=== PATIENT | male | born 1955 | race Caucasian/White ===

== ENCOUNTER 2020-04-29 08:40 | Inpatient (IN) | payer OTHER ==
[2020-04-29 10:05] LABS: Protime INR 0.94
[2020-04-29] MEDS ORDERED: ONDANSETRON 4 MG/2 ML VIAL ONE ×2 (10:11→12:35)
[2020-04-29] MEDS ORDERED: MORPHINE 2 MG/ML SYR ONE ×2 (10:11→12:35)
[2020-04-29 10:18] LABS: Basophils % 0.2 % (0-1.3); Hematocrit 51.2 % (39.6-49.0); Lymphocytes % 12.5 % (15.3-44.8); MPV 7.8 fL (7.6-11.3); RBC Red Blood Cell Count 5.12 M/uL (4.33-5.43)
[2020-04-29 10:21] LABS: ALT/SGPT 24 U/L (12-78); AST/SGOT 23 U/L (15-37); Albumin 3.7 g/dL (3.4-5.0); Alkaline Phosphatase 68 U/L (45-117); BUN Blood Urea Nitrogen 26 mg/dL (7-18); Bicarbonate 25 mmol/L (21-32); Bilirubin Direct 0.2 mg/dL (0-0.2); Bilirubin Total 0.8 mg/dL (0.2-1.0); Glucose Level 109 mg/dL (74-106); Potassium 4.4 mmol/L (3.5-5.1); Protein, Total 7.6 g/dL (6.4-8.2); Troponin (Emerg Dept Use Only) < 0.02 ng/mL (0.0-0.045)
[2020-04-29 10:22] LABS: Lipase 69 U/L (73-393); Magnesium 2.3 mg/dL (1.8-2.4)
[2020-04-29 10:23] LABS: Sodium Level 119 mmol/L (136-145)
--- NOTE | 2020-04-29 10:40 | RAD REPORT ---
EXAM DESCRIPTION: RAD - Chest Single View - 04/29/2020 9:50 am CLINICAL HISTORY: ABDOMINAL DISTENTION Chest pain. COMPARISON: Abdomen Pelvis Wo Contrast dated 04/28/2020 FINDINGS: Portable technique limits examination quality. The lungs are mildly emphysematous but grossly clear. The heart is normal in size. No displaced fract ures. IMPRESSION: No acute intrathoracic process suspected.
--- NOTE | 2020-04-29 11:33 | P.HP ---
Certification for Inpatient Patient admitted to: Inpatient With expected LOS: >2 Midnights Practitioner: I am a practitioner with admitting privileges, knowledge of patient current condition, hospital course, and medical plan of care. Services: Services provided to patient in accordance with Admission requirements found in Title 42 Section 412.3 of the Code of Federal Regulations Patient History Date of Service: 04/29/20 Reason for admission: SBO History of Present Illness: 64yo M, PMH: HIV, HTN presents to ED due to several days of nausea, abdominal distention and pain. He was seen by general surgery in office and had CT abd/pelvis done yesterday which revealed SBO in R abdomen - at site of R inguinal hernia. He was also noted to have L inguinal hernia as well. He reports no PO intake in ~4 days. Last BM was ~3 days ago, passing very little flatus. He had an episode of NBNB emesis last night and this morning. He denies any fevers, chest pain, SOB, swelling. He reports h/o HIV and has been "stable" since 1999, and takes anti-retrovirals - sees ID in [place]. - Past Medical/Surgical History -: HIV -: HTN -: Appendectomy - 1969 - Family History Family History: Reviewed- Non-Contributory - Social History Smoking Status: Current every day smoker (1ppd) Smoking therapy provided: Yes Patient receptive to therapy: Yes Alcohol use: Yes Place of Residence: Home Review of Systems 10-point ROS is otherwise unremarkable Physical Examination - Studies Laboratory Data (last 24 hrs) 04/29/20 09:51: PT 11.1, INR 0.94 04/29/20 09:51: WBC 16.30 H, Hgb 17.7, Hct 51.2 H, Plt Count 339 04/29/20 09:51: Sodium 119 L*, Potassium 4.4, BUN 26 H, Creatinine 0.99, Glucose 109 H, Magnesium 2.3, Total Bilirubin 0.8, AST 23, ALT 24, Alkaline Phosphatase 68, Lipase 69 L Assessment and Plan - Advance Directives Does patient have a Living Will: No Does patient have a Durable POA for Healthcare: No Physician Review Additional Text: Physical Exam: Gen: NAD HEENT: normal conjunctiva, sclera anicteric CV: RRR, no murmur Pulm: CTAB, no wheeze/rales Abd: soft, distended, dimished bowel sounds, mild diffuse tenderness, b/l inguinal hernias, R>L Ext: no rash/lesions, no edema Neuro: str 5/5 bilaterally upper/lower extremities. AAOx3 Problem List SBO b/l inguinal hernias nausea/vomiting, abdominal pain secondary to SBO HIV on antiretroviral therapy HTN -NPO, IVF, prophylactic Zosyn for SBO -leukocytosis likely reactive and partly from dehydration, check procalcitonin -general surgery consulted, pt to go to OR Today -morphine for pain control -low threshold for NGT placement -pt with low-moderate risk of surgery given h/o HIV. No h/o cardiac disease -will obtain home medications for HTN/HIV and restart when taking PO, will consult ID -may need coverage for opportunistic infection perioperatively if will remain NPO for extended time -VTE: SCDs for now Code: full VTE: SCDs Dispo: for OR, anticipate dc home in ~2-3 days Time Spent Managing Pts Care (In Minutes): 60
--- NOTE | 2020-04-29 11:45 | EDPHYS ---
Physician Documentation [facility] Name: Gil Mckeon Age: 64 yrs Sex: Male : 1955 Arrival Date: 04/29/2020 Time: 08:44 Bed 17 Private MD: Crispin Lopez ED Physician Bob Morton HPI: 04/29 09:35 This 64 yrs old Male presents to ER via Ambulatory with complaints of cp Abdominal Problem. 09:35 The patient presents with abdominal pain in the lower abdomen, abdominal distention cp that is diffuse. Onset: The symptoms/episode began/occurred gradually. The symptoms do not radiate. Associated signs and symptoms: Pertinent positives: nausea and vomiting, constipation, Pertinent negatives: diarrhea, fever. Severity of pain: in the emergency department the pain is unchanged despite home interventions. Patient reports having CT of abdomen/pelvis performed yesterday that was ordered by DR Lopez showing small bowel obstruction. Historical: - Allergies: 09:20 Bactrim; aa5 - PMHx: 09:20 Hypertension; AIDS; aa5 - PSHx: 09:20 Appendectomy; aa5 - Immunization history:: Flu vaccine is up to date. - Social history:: Smoking status: Patient reports the use of cigarette tobacco products, smokes one pack cigarettes per day. ROS: 09:40 Constitutional: Positive for poor PO intake, Negative for body aches, chills, fever. cp 09:40 Eyes: Negative for injury, pain, redness, and discharge. cp 09:40 ENT: Negative for ear pain, sore throat, difficulty swallowing, difficulty handling cp secretions. 09:40 Cardiovascular: Negative for chest pain, edema, palpitations. 09:40 Respiratory: Negative for cough, shortness of breath, wheezing. 09:40 Abdomen/GI: Positive for abdominal pain, nausea and vomiting, constipation, abdominal distension, anorexia, Negative for diarrhea, black/tarry stool, rectal bleeding. 09:40 Back: Negative for pain at rest, pain with movement. 09:40 : Negative for urinary symptoms, flank pain, testicular pain 09:40 Skin: Negative for cellulitis, rash. 09:40 Neuro: Negative for altered mental status, dizziness, headache, seizure activity, syncope, weakness. 09:40 All other systems are negative. Exam: 09:45 Constitutional: The patient appears in no acute distress, alert, awake, cp non-diaphoretic, non-toxic, well developed, well nourished, uncomfortable. 09:45 Head/Face: Normocephalic, atraumatic. cp 09:45 Eyes: Periorbital structures: appear normal, Pupils: Extraocular movements: intact throughout, Conjunctiva: normal, no exudate, no injection, Sclera: no appreciated abnormality, Lids and lashes: appear normal, bilaterally. 09:45 ENT: External ear(s): are unremarkable, Nose: is normal, Mouth: Lips: moist, Oral mucosa: pink and intact, moist, Posterior pharynx: Airway: no evidence of obstruction, patent. 09:45 Chest/axilla: Inspection: normal, Palpation: is normal, no crepitus, no tenderness. 09:45 Cardiovascular: Rate: normal, Rhythm: regular, Edema: is not appreciated, JVD: is not appreciated. 09:45 Respiratory: the patient does not display signs of respiratory distress, Respirations: normal, no use of accessory muscles, no retractions, labored breathing, is not present, Breath sounds: are clear throughout, no decreased breath sounds, no stridor, no wheezing. 09:45 Abdomen/GI: Inspection: distension, that is moderate, in the abdomen diffusely, Bowel sounds: active, all quadrants, Palpation: soft, in all quadrants, moderate abdominal tenderness, in all quadrants, rebound tenderness, is not appreciated, voluntary guarding, is not appreciated, Hernia: noted in the right inguinal area and left inguinal area, tenderness, that is moderate, bowel sounds are appreciated on auscultation. 09:45 Back: pain, is absent, ROM is normal. 09:45 Skin: cellulitis, is not appreciated, no rash present. 09:45 Neuro: Orientation: to person, place \\T\\ time. Mentation: is normal, Cerebellar function: is grossly normal, Motor: moves all fours, strength is normal, Sensation: is normal. 10:20 ECG was reviewed by the Attending Physician. cp Vital Signs: 09:18 BP 134 / 80; Pulse 82; Resp 16 S; Temp 98.2(O); Pulse Ox 98% on R/A; Weight 70.31 kg aa5 (R); Height 5 ft. 9 in. (175.26 cm) (R); 12:56 BP 125 / 70; Pulse 66; Resp 16 S; Pulse Ox 96% on R/A; jd3 13:57 BP 113 / 72; Pulse 67; Resp 17 S; Pulse Ox 96% on R/A; jd3 09:18 Body Mass Index 22.89 (70.31 kg, 175.26 cm) aa5 MDM: 09:27 Patient medically screened. cp 10:00 Differential diagnosis: bowel obstruction, non-specific abd pain, sepsis, incarcerated cp hernia, electrolyte abnormality. 11:00 Data reviewed: vital signs, nurses notes, lab test result(s), radiologic studies, CT cp scan, and as a result, I will admit patient. 11:00 Test interpretation: by ED physician or midlevel provider: ECG, plain radiologic cp studies. Counseling: I had a detailed discussion with the patient and/or guardian regarding: the historical points, exam findings, and any diagnostic results supporting the discharge/admit diagnosis, lab results, radiology results, the need for further work-up and treatment in the hospital. Response to treatment: the patient's symptoms have mildly improved after treatment. 11:05 Physician consultation: Darron Zuluaga MD was called at 10:50, was contacted at 11:05, regarding admission, to the telemetry unit. patient's condition, and will see patient in ED. 04/29 09:31 Order name: Basic Metabolic Panel cp 04/29 09:31 Order name: CBC with Diff cp 04/29 09:31 Order name: LFT's cp 04/29 09:31 Order name: Magnesium cp 04/29 09:31 Order name: PT-INR cp 04/29 09:31 Order name: Troponin (emerg Dept Use Only) cp 04/29 09:31 Order name: Lipase cp 04/29 10:10 Order name: COVID-19 : Document "Date of Symptom Onset" if Symptomatic. cp 04/29 10:12 Order name: Protime (+INR); Complete Time: 10:28 EDMS 04/29 10:20 Order name: CBC with Automated Diff; Complete Time: 10:28 EDMS 04/29 10:28 Interpretation: Normal except: WBC 16.30; HCT 51.2; CECIL% 79.2; LYM% 12.5; NEUT A 12.9. cp 04/29 10:24 Order name: Basic Metabolic Panel; Complete Time: 10:28 EDMS 04/29 10:29 Interpretation: Normal except: NA 119; CL 85; GLUC 109; BUN 26; GFR 76. cp 02 10:24 Order name: Liver (Hepatic) Function; Complete Time: 10:28 EDMS 04/29 10:29 Interpretation: Normal except: GLOB 3.9; A/G 0.9. cp 02/ 10:24 Order name: Troponin (Emerg Dept Use Only); Complete Time: 10:28 EDMS 04/29 10:24 Order name: Magnesium; Complete Time: 10:28 EDMS 04/29 09:31 Order name: XRAY Chest (1 view) cp 04/29 09:31 Order name: EKG; Complete Time: 09:32 cp 04/29 09:31 Order name: Cardiac monitoring; Complete Time: 09:36 cp 04/29 09:31 Order name: EKG - Nurse/Tech; Complete Time: 10:20 cp 04/29 09:31 Order name: IV Saline Lock; Complete Time: 10:01 cp 04/29 09:31 Order name: Labs collected and sent; Complete Time: 10:01 cp 04/29 09:31 Order name: O2 Per Protocol; Complete Time: 09:36 cp 04/29 10:24 Order name: Lipase; Complete Time: 10:28 EDMS 04/29 10:41 Order name: RAD; Complete Time: 10:56 EDMS 04/29 12:54 Order name: CORONAVIRUS EDMS 04/29 13:57 Order name: SARS-COV-2 RT PCR EDMS 04/29 09:31 Order name: O2 Sat Monitoring; Complete Time: 09:36 cp EC:20 Rate is 71 beats/min. Rhythm is regular. FL interval is normal. QRS interval is normal. cp QT interval is normal. T waves are Inverted in lead aVR. Interpreted by me. Reviewed by me. Administered Medications: 10:00 Drug: Zofran (Ondansetron) 4 mg Route: IVP; Site: left forearm; jd3 10:01 Drug: morphine 2 mg Route: IVP; Site: left forearm; jd3 12:23 Drug: morphine 2 mg Route: IVP; Site: left forearm; jd3 12:23 Drug: NS 0.9% 500 ml Route: IV; Rate: bolus; Site: left forearm; jd3 12:23 Drug: Zosyn 3.375 grams Route: IVPB; Infused Over: 60 mins; Site: left forearm; jd3 12:23 Drug: Zofran (Ondansetron) 4 mg Route: IVP; Site: left forearm; jd3 Disposition: 15:54 Co-signature as Attending Physician, Bob Morton MD. ma2 Disposition: 04/29/20 11:20 Hospitalization ordered by Darron Zuluaga for Inpatient Admission. Preliminary diagnosis are Bilateral inguinal hernia, with obstruction, without gangrene, Hypo-osmolality and hyponatremia, Nausea and vomiting. - Bed requested for [facility] ER HOLD. - Status is Inpatient Admission. bd - Condition is Stable. - Problem is new. - Symptoms have improved. Signatures: Dispatcher [employer] EDMS Patrica Escobedo Audri, RN RN aa5 Juanjose Herrera PA PA cp Davies, Jonathon, RN RN jd3 Alzahri, Mohammad, MD MD ma2 Corrections: (The following items were deleted from the chart) 12:23 11:20 Hospitalization Ordered by Darron Zuluaga MD for Inpatient Admission. Preliminary bd diagnosis is Bilateral inguinal hernia, with obstruction, without gangrene; Hypo-osmolality and hyponatremia; Nausea and vomiting. Bed requested for Telemetry/MedSurg (Inpatient). Status is Inpatient Admission. Condition is Stable. Problem is new. Symptoms have improved. cp 15:28 12:23 04/29/2020 11:20 Hospitalization Ordered by Darron Zuluaga MD for Inpatient bd Admission. Preliminary diagnosis is Bilateral inguinal hernia, with obstruction, without gangrene; Hypo-osmolality and hyponatremia; Nausea and vomiting. Bed requested for [facility] ER HOLD. Status is Inpatient Admission. Condition is Stable. Problem is new. Symptoms have improved. bd
--- NOTE | 2020-04-29 11:45 | ER ---
Nurse's Notes [facility] Name: Gil Mckeon Age: 64 yrs Sex: Male : 1955 Arrival Date: 04/29/2020 Time: 08:44 Bed 17 Private MD: Crispin Lopez Diagnosis: Bilateral inguinal hernia, with obstruction, without gangrene;Hypo-osmolality and hyponatremia;Nausea and vomiting Presentation: 04/29 09:18 Chief complaint: Patient states: "Dr. Lopez did a CT scan yesterday and I have a aa5 bowel blockage". Pt reports vomiting last night. Pt reports generalized weakness. Coronavirus screen: At this time, the client does not indicate any symptoms associated with coronavirus-19. The client reports previous COVID testing was negative. Date of collection: April 18, 2020. Ebola Screen: Patient negative for fever greater than or equal to 101.5 degrees Fahrenheit, and additional compatible Ebola Virus Disease symptoms. Initial Sepsis Screen: Does the patient meet any 2 criteria? No. Patient's initial sepsis screen is negative. Does the patient have a suspected source of infection? No. Patient's initial sepsis screen is negative. Risk Assessment: Do you want to hurt yourself or someone else? Patient reports no desire to harm self or others. Onset of symptoms was April 29, 2020. 09:18 Method Of Arrival: Ambulatory aa5 09:18 Acuity: AIDEN 3 aa5 Historical: - Allergies: 09:20 Bactrim; aa5 - PMHx: 09:20 Hypertension; AIDS; aa5 - PSHx: 09:20 Appendectomy; aa5 - Immunization history:: Flu vaccine is up to date. - Social history:: Smoking status: Patient reports the use of cigarette tobacco products, smokes one pack cigarettes per day. Screenin:16 Abuse screen: Denies threats or abuse. Nutritional screening: No deficits noted. jd3 Tuberculosis screening: No symptoms or risk factors identified. Fall Risk Ambulatory Aid- None/Bed Rest/Nurse Assist (0 pts). Gait- Normal/Bed Rest/Wheelchair (0 pts) Mental Status- Oriented to own ability (0 pts). Total Benoit Fall Scale indicates No Risk (0-24 pts). Assessment: 09:35 General: Appears in no apparent distress. comfortable, Behavior is calm, cooperative, jd3 appropriate for age. Pain: Complains of pain in abdomen Quality of pain is described as aching. Neuro: Level of Consciousness is awake, alert, obeys commands, Oriented to person, place, time, situation. Cardiovascular: Denies chest pain, Capillary refill < 3 seconds Patient's skin is warm and dry. Respiratory: Airway is patent Respiratory effort is even, unlabored, Respiratory pattern is regular, symmetrical, Denies cough, shortness of breath. GI: Abdomen is round distended, Abd is soft X 4 quads Abdomen is tender to palpation in right lower quadrant and left lower quadrant Reports bloating, nausea. : No signs and/or symptoms were reported regarding the genitourinary system. EENT: No signs and/or symptoms were reported regarding the EENT system. Derm: Skin is intact, Skin is dry, Skin is normal, Skin temperature is warm. Musculoskeletal: Circulation, motion, and sensation intact. Range of motion: intact in all extremities. 10:37 Reassessment: Patient appears in no apparent distress at this time. Patient and/or [facility] family updated on plan of care and expected duration. Pain level reassessed. Patient is alert, oriented x 3, equal unlabored respirations, skin warm/dry/pink. Patient states feeling better. 12:56 Reassessment: Patient appears in no apparent distress at this time. No changes from jd3 previously documented assessment. Patient and/or family updated on plan of care and expected duration. Pain level reassessed. Patient is alert, oriented x 3, equal unlabored respirations, skin warm/dry/pink. 13:56 Reassessment: Patient appears in no apparent distress at this time. Patient and/or jd3 family updated on plan of care and expected duration. Pain level reassessed. Patient is alert, oriented x 3, equal unlabored respirations, skin warm/dry/pink. charting continued in [facility]. Vital Signs: 09:18 BP 134 / 80; Pulse 82; Resp 16 S; Temp 98.2(O); Pulse Ox 98% on R/A; Weight 70.31 kg aa5 (R); Height 5 ft. 9 in. (175.26 cm) (R); 12:56 BP 125 / 70; Pulse 66; Resp 16 S; Pulse Ox 96% on R/A; jd3 13:57 BP 113 / 72; Pulse 67; Resp 17 S; Pulse Ox 96% on R/A; jd3 09:18 Body Mass Index 22.89 (70.31 kg, 175.26 cm) aa5 ED Course: 08:44 Patient arrived in ED. as 08:44 Crispin Lopez MD is Private Physician. as 09:15 Arm band placed on. aa5 09:20 Triage completed. aa5 09:27 Juanjose Herrera PA is PHCP. cp 09:27 Bob Morton MD is Attending Physician. cp 09:35 Davy Freedman, JESUS is Primary Nurse. jd3 10:01 Inserted saline lock: 20 gauge in left forearm, using aseptic technique. Blood jd3 collected. 11:18 Darron Zuluaga MD is Hospitalizing Provider. cp 13:20 Patient has correct armband on for positive identification. Placed in gown. Bed in low jd3 position. Call light in reach. Side rails up X2. monitoring and evaluation advisor on. Pulse ox on. NIBP on. 13:57 No provider procedures requiring assistance completed. Patient admitted, IV remains in jd3 place. Administered Medications: 10:00 Drug: Zofran (Ondansetron) 4 mg Route: IVP; Site: left forearm; jd3 10:01 Drug: morphine 2 mg Route: IVP; Site: left forearm; jd3 12:23 Drug: morphine 2 mg Route: IVP; Site: left forearm; jd3 12:23 Drug: NS 0.9% 500 ml Route: IV; Rate: bolus; Site: left forearm; jd3 12:23 Drug: Zosyn 3.375 grams Route: IVPB; Infused Over: 60 mins; Site: left forearm; jd3 12:23 Drug: Zofran (Ondansetron) 4 mg Route: IVP; Site: left forearm; jd3 Outcome: 11:20 Decision to Hospitalize by Provider. cp 13:57 Admitted to ER Hold. Please see [facility] for further documentation. jd3 13:57 Condition: stable 13:57 Instructed on the need for admit. 15:28 Patient left the ED. bd Signatures: Patrica Escobedo Amelia as Calderon, Audri, RN RN aa5 Juanjose Herrera PA PA cp Davy Freedman RN RN jd3 Corrections: (The following items were deleted from the chart) : 09:18 Coronavirus screen: At this time, the client does not indicate any symptoms aa5 associated with coronavirus-19. aa5 12:33 12:32 NS 0.9% 500 ml IV at bolus in left forearm jd3 jd3
[2020-04-29] MEDS ORDERED: NA CHLORIDE 0.9% 500 ML ONE (11:50)
[2020-04-29] MEDS ORDERED: PIPER/TAZO/NS 3.375gm 3.375 GM/100 ML BAG ONE (11:50)
[2020-04-29] MEDS: NA CHLORIDE 0.9% 1,000 ML IV SCH ×2 (14:11→22:32)
[2020-04-29] MEDS ORDERED: ONDANSETRON 4 MG/2 ML VIAL IV PRN (14:11)
[2020-04-29] MEDS: MORPHINE 2 MG/ML SYR IV PRN (14:23)
[2020-04-29] MEDS ORDERED: NA CHLORIDE 0.9% 1,000 ML ONE (14:52)
[2020-04-29 15:31] VITALS: BMI 22.8
--- NOTE | 2020-04-29 15:51 | CON ---
Date of Consultation: 04/29/2020 Reason For Service: Small bowel obstruction with incarcerated right inguinal hernia. History Of Present Illness: This is a case of a 64-year-old patient with multiple medical history in cluding HIV positive, hypertension, abdominal distention for several days already, yesterday came to the office. I asked for a CAT scan of the abdomen and pelvis due to his current condition and last n ight, found to have a small bowel obstruction with a loop of bowel going into the right inguinal paola on including cecum and ileocecal valve and part of the small bowel creating an obstruction of the sma ll bowel. Patient also has hernia on the left side, but he has not get any problem with no pain and he is more concerned about the right side. He was asked to come to the ER immediately, but he decide d just to come today instead of yesterday. He understood the risks that he took. He shows in ER rig ht now once again with vomiting last night too and he was seen in the ER and started the medical work up, getting ready for emergent surgery. He had a colonoscopy about 2 years ago done by Dr. Hurd, he claimed was negative. They have been trying his belly ache back and forth for the last se veral weeks. Past Medical History: HIV, hypertension. Surgical History: Include appendectomy in the 70s. Family History: Noncontributory. He smoked a pack a day. He does not drink alcohol. Medications: Reviewed. Review of Systems: As above in H and P, nausea, vomiting, abdominal distention, abdominal pain, right inguinal pain. No melena. No dysuria, hematuria, hematochezia. Physical Examination: General: Patient is awake, alert. HEENT: Pupils are anicteric. Neck: Supple. Chest: Clear. Abdomen: Distended. The patient has a right inguinal hernia present. It is tender. The patient al so has left inguinal hernia, reducible. Extremities: Good capillary refill. Rectal deferred. CAT scan was done last night shows multiple f indings. Patient has as per Dr. Brunner a small bowel obstruction, we believe the source of that sma ll bowel obstruction or the point where we believe the obstruction is, on the right inguinal region w here he has cecum and ileocecal bowel part of the distal small bowel in that region causing a kink th at is proximal to that is developing bowel obstruction. The patient also happened to have a left ing uinal hernia for what he contained a loop of sigmoid colon, but that area does not look dilated or in flamed. A small amount of fluid in the peritoneal cavity. Assessment: This is a 64-year-old patient with small bowel obstruction, we believe the point of the small bowel obstruction could be the right inguinal region that is where the patient complained is rodriguez ving a tenderness in that region and the bulging. That happened to be also the point where the CAT s can believe is the reason of his obstruction. We are going to take him urgently to OR to relieve raj t obstruction and fix the hernia and may need bowel resection, may need laparotomy, may need ostomy. Obviously, he has some other issues like stomach pain that he believes is gastritis and that will be addressed, but at this moment, the emergent call for that one obviously. Indications: He is afraid of being a long time under anesthesia so he is not going to allow us to do the right inguinal hernia to emergency, but in the future when he get medically better an d more stable since he feels dehydrated right now in 2 weeks, then eventually we will fix the opposit e hernia. In the meantime he is going to trying to not to do any heavy lifting. He has no pain in t hat region. He is asymptomatic, but he was advised in the way intervention is going to have to be fi xed once this emergency resolved. The benefits, alternatives, and risks of repair of above procedure were fully explained, including, but not limited to infection, bleeding, damage to adjacent structur es, anesthesia complication, abscess, recurrence, PA and even . He also understands this may no t relieve the symptoms. He might need more than one surgical intervention. The medical doctors trying to clear him for emergent surgery in the next few minutes. The OR was called for booking. XAVIER/HAILEY Voice ID: [id number] Report ID: [id number]
[2020-04-29] MEDS ORDERED: propofoL 200 MG/20 ML VIAL IV ONE (15:52)
[2020-04-29] MEDS ORDERED: ROCURONIUM 50 MG/5 ML VIAL IV ONE (15:53)
[2020-04-29] MEDS ORDERED: LIDOCAINE 2% MPF 5 ML VIAL ONE (15:53)
[2020-04-29] MEDS ORDERED: FENTANYL CITR 250 MCG/5 ML ONE (15:53)
--- NOTE | 2020-04-29 16:08 | P.BOP ---
Preoperative diagnosis: acute cholecystitis, symptomatic cholelithiasis, Postoperative diagnosis: same plus umbilical hernia Primary procedure: 1. Laparoscopic cholecystectomy Secondary procedure: 2. open repair umbilical hernia Net Wpf Developer: ARCHANA MCCAIN ([employer]CH[employer]) Estimated blood loss: <20cc Specimen: gb Findings: gallbladder with gangrenous wall changes Anesthesia: General Complications: None Drain(s): TYREL drain Transferred to: Recovery Room Condition: Good
[2020-04-29] MEDS ORDERED: SUCCINYLCHOLINE 20 MG/ML (10 ML) IV ONE (16:26)
--- NOTE | 2020-04-29 16:48 | OP ---
Date of Procedure: 04/29/2020 Surgeon: Crispin Lopez MD Community Health Planning Director: JOSE Martinez. Preoperative Diagnosis: Acute cholecystitis, symptomatic cholelithiasis. Postoperative Diagnosis: Acute cholecystitis, symptomatic cholelithiasis plus umbilical hernia. Procedures: 1.Laparoscopic cholecystectomy. 2.Open repair of umbilical hernia. Estimated Blood Loss: Less than 20 cc. Specimen: Gallbladder. Findings: Gallbladder with gangrenous wall changes. Anesthesia: General plus local. Drains: TYREL #10. Indications: This is the case of a 64-year-old patient, came few hours ago to the hospital with epig astric right upper quadrant pain, diagnosed with acute cholecystitis with pericholecystic fluid and i nflammation of the gallbladder. The patient has Rodriguez sign and the patient wants to have surgery do ne during this admission. I do agree. So, the patient was booked emergently to the operating room. Laparoscopic versus open cholecystectomy fully explained to the patient, which include, but not limi brenda to infection, bleeding, damage to adjacent structures, anesthesia complication, choledocholithias is, bile leak, pancreatitis, MA, and even . He also understands this may not relieve any sympto ms. He might need more than one surgical intervention. He understood, signed a consent. Procedure In Detail: The patient was brought to the operating room, placed in supine position. Anes thesia was done without complication. Abdominal area was prepped and draped in usual sterile fashion . Marcaine 0.5% was injected for local anesthetic followed by sharp incision of the skin in the supr aumbilical region and incision was carried down to fascia. We noticed the patient has small umbilica l hernia. Hernia sac was removed. Fascial edges were clean. Vicryl #1 placed inside the fascia. H asson trocar was carefully introduced. No bleeding was obtained. I placed 3 more trocars, 5 mm each one of them in the epigastric right upper quadrant under direct visualization. That helped us to vi sualize the gallbladder, looked very distended and inflamed. So, we put an Endo needle under direct visualization and deflated the gallbladder. Needle was removed under direct visualization and a gras per was then placed in the fundus of the gallbladder. We noted some patches of ischemic and gangreno us changes in the gallbladder, so we were careful to handle this friable gallbladder. We were able t o put a grasper in the fundus of the gallbladder and another grasper in the infundibulum retracting t he gallbladder in the inferolateral fashion exposing the triangle of Calot obtaining critical view. Cystic duct and cystic artery were clearly isolated freed circumferentially, and a connection between those and the gallbladder were clearly identified. I proceeded to ligate those by using at least 3 clips proximal, 1 clip distal, and ligation in middle. Same was done with the cystic artery. Small cystic branches were also ligated using the same technique. Cystic artery branch was ligated using s hawa technique. Hepatic arteries and common bile duct were protected at all times. At that moment, I proceeded to remove the gallbladder under direct vision from the liver using Bovie cauterizer and re moved from abdominal cavity using an EndoCatch through the umbilical incision. The area was inspecte d once again. Due to the amount of infection in that area and inflammation, I proceeded to leave a J P drain over the area exiting to 1 of the trocar site and securing that with 2-0 nylon. At that mome nt, I proceeded to remove the trocars under direct vision, deflated pneumoperitoneum, closed the fasc ia with #1 Vicryl, irrigated the subcutaneous tissue and closed with 3-0 chromic, and the skin with s taples. Sponge count and instrument counts were correct. The patient tolerated the procedure well. The patient was sent to Recovery in stable condition. The patient will remain on antibiotics and TYREL drain. XAVIER/HAILEY Voice ID: [id number] Report ID: [id number]
[2020-04-29] MEDS ORDERED: EPHEDRINE SULF 50 MG/ML VIAL ONE (16:51)
[2020-04-29] MEDS ORDERED: Ringers Lactate 1,000 ML IV ONE (17:06)
--- NOTE | 2020-04-29 17:16 | P.BOP ---
Preoperative diagnosis: Small bowel obstruction, incarcerated right inguinal hernia Postoperative diagnosis: same Primary procedure: Emergent open repair of incarcerated right inguinal hernia with mesh Mine Safety Manager: Patricia Faith (Richard) Estimated blood loss: <10cc Specimen: hernia sac Findings: as above, incarcerated small bowel and cecum viable Anesthesia: MAC Complications: None Implants: large mesh plug and sheet Transferred to: Recovery Room Condition: Good
[2020-04-29] MEDS ORDERED: KETOROLAC 30 MG/ML INJ ONE (17:18)
[2020-04-29] MEDS ORDERED: dexAMETHasone 10 MG/ML VIAL ONE (17:19)
[2020-04-29] MEDS ORDERED: NEOSTIGMINE 1 MG/ML -5 ML ONE (17:24)
[2020-04-29] MEDS ORDERED: GLYCOPYRROLATE 0.2 MG/ML SYR ONE (17:24)
[2020-04-30] MEDS: PIPER/TAZO/NS 3.375gm 3.375 GM/100 ML BAG IVPB SCH ×4 (01:00→20:00)
[2020-04-30 04:42] LABS: Basophils % 0.1 % (0-1.3); Hematocrit 43.6 % (39.6-49.0); Lymphocytes % 7.5 % (15.3-44.8); MPV 7.6 fL (7.6-11.3); RBC Red Blood Cell Count 4.26 M/uL (4.33-5.43)
[2020-04-30 05:26] LABS: Blood Morphology Comment NOT SEEN (NOT SEEN); Platelet Estimate ADEQ
[2020-04-30 05:59] LABS: ALT/SGPT 18 U/L (12-78); AST/SGOT 15 U/L (15-37); Alkaline Phosphatase 75 U/L (45-117); BUN Blood Urea Nitrogen 21 mg/dL (7-18); Bicarbonate 22 mmol/L (21-32); Bilirubin Total 0.5 mg/dL (0.2-1.0); Glucose Level 110 mg/dL (74-106); Magnesium 2.3 mg/dL (1.8-2.4); Potassium 4.5 mmol/L (3.5-5.1); Protein, Total 6.2 g/dL (6.4-8.2); Sodium Level 125 mmol/L (136-145)
--- NOTE | 2020-04-30 09:29 | P.PN ---
Subjective Date of Service: 04/30/20 Chief Complaint: SBO Subjective: Improving (s/p surgery yesterday, ambulating well, no pain, no nausea/vomiting. Passing flatus overnight, no abdominal distention) Review of Systems 10-point ROS is otherwise unremarkable Physical Examination - Vital Signs Temperature: 98.9 F Blood Pressure: 153/73 Pulse: 79 Respirations: 16 Pulse Ox (%): 94 - Studies Laboratory Data (last 24 hrs) 04/29/20 09:51: PT 11.1, INR 0.94 04/29/20 09:51: WBC 16.30 H, Hgb 17.7, Hct 51.2 H, Plt Count 339 04/29/20 09:51: Sodium 119 L*, Potassium 4.4, BUN 26 H, Creatinine 0.99, Glucose 109 H, Magnesium 2.3, Total Bilirubin 0.8, AST 23, ALT 24, Alkaline Phosphatase 68, Lipase 69 L Assessment & Plan Physician Review Additional Text: Physical Exam: Gen: NAD HEENT: normal conjunctiva, sclera anicteric CV: RRR, no murmur Pulm: CTAB, no wheeze/rales Abd: soft, nontender, nondistended, R groin with surgical dressing in place: c/d/i Ext: no rash/lesions, no edema Neuro: str 5/5 bilaterally upper/lower extremities. AAOx3 Problem List SBO secondary incarcerated R inguinal hernia s/p R inguinal hernia repair (2/2) nausea/vomiting, abdominal pain secondary to SBO, resolved Hyponatremia, secondary to hypovolemia HIV on antiretroviral therapy HTN -discussed with general surgery, advance diet to full liquid for today, continue IVF for now. Hyponatremia secondry to hypovolemia, improving with IVF -leukocytosis likely reactive and partly from dehydration, slightly improved, continue zosyn for 1 more day -morphine for pain control -confirmed home meds, restart antiretrovirals today, ID consulted -may need coverage for opportunistic infection perioperatively if will remain NPO for extended time -VTE: SCDs for now, patient is ambulating well Code: full VTE: SCDs, ambulation Dispo: Anticipate discharge home in 24 hr Time Spent Managing Pts Care (In Minutes): 35
[2020-04-30] MEDS: FOSAMPRENAVIR CALCIUM PO SCH ×2 (09:30→21:16)
[2020-04-30] MEDS: RITONAVIR 100 MG PO SCH ×2 (09:30→21:16)
[2020-04-30] MEDS: lisinopriL 20 MG TAB PO SCH (10:11)
[2020-04-30] MEDS: LEVOTHYROXINE SOD 0.05 MG TABLET PO SCH (10:11)
[2020-04-30] MEDS: BUSPIRONE HCL 5 MG TABLET PO SCH ×2 (10:12→21:15)
[2020-04-30] MEDS: NA CHLORIDE 0.9% 1,000 ML IV SCH (10:15)
--- NOTE | 2020-04-30 12:19 | EKG ---
Test Date: 2020-04-29 Test Time: 10:14:31 Raise Driller: LANI MEASUREMENT RESULTS: Intervals: Rate: 71 HI: 142 QRSD: 74 QT: 382 QTc: 415 Clarence: P: 62 HI: 142 QRS: 35 T: 56 INTERPRETIVE STATEMENTS: Normal sinus rhythm Biatrial enlargement Abnormal ECG No previous ECG available for comparison Electronically Signed On 04-30-20 12:15:39 TEXTILE COLORIST DYER by Cr Nogueira
--- NOTE | 2020-04-30 12:21 | CON ---
History Of Present Illness: This is a 64-year-old male with significant history of HIV, on HAART the rapy with Dr. Bahena in [place]. The patient also has significant history of hypertension, coming in with right inguinal hernia incarceration and abdominal pain with nausea and pain. The patient had lewis rgical repair done by surgical team at the hospital, is doing much better today and able to start wit h liquid diet. Denies any other problems. No fevers. Pain has subsided significantly. Past Medical History: HIV, hypertension, appendectomy in 1969. Social History: Tobacco, positive. Alcohol, positive. Medications: Zosyn. See MARs for other medications. Allergies: BACTRIM. Review of Systems: A 10-point review was performed. Physical Examination: General: This is a 64-year-old male, lying in bed, not in any acute cardiopulmonary distress. Vital Signs: Temperature 98, pulse 79, respirations 16, blood pressure 157/73. HEENT: Unremarkable. Neck: Supple. Lungs: Clear to auscultation. Heart: S1, S2. Regular. Abdomen: Soft, nontender. Bowel sounds present. Extremities: No edema. Right groin wound noted with sutures in place. Laboratory Data: Shows WBC 13.7, hemoglobin 14.8, platelets are 253. Chemistry shows sodium 125, po tassium 4.5, chloride 94, bicarb 22, BUN 21, creatinine 0.7, glucose is 110. Micro data not availabl e. Assessment And Plan: A 64-year-old male with significant longstanding history of human immunodeficie ncy virus, currently being followed by HIV Disease team of [place], here with an incarcerated right i nguinal hernia, which has been operated and the patient is doing much better. Leukocytosis is subsid ing. We will recommend to continue monitoring for signs of infection. If leukocytosis does not impr ove, we will recommend to start the patient on Omnicef or doxycycline for 7 more days and follow up w ith his Infectious Disease doctor in [place]. We will follow the patient closely. Thank you Dr. Zuluaga for consult. NF/MODL Voice ID: [id number] Report ID: [id number]
[2020-04-30] MEDS: EMTRICITABINE/TENOFOVIR 1 TAB PO SCH (12:30)
[2020-04-30] MEDS: NEBIVOLOL HCL 20 MG TABLET PO SCH (14:25)
[2020-04-30 15:37] LABS: Urine Appearance CLEAR; Urine Bilirubin NEGATIVE (NEG); Urine Blood TRACE (NEG); Urine Color YELLOW; Urine Glucose NEGATIVE (NEG); Urine Microscopic Reflex ORDER UMIC; Urine Protein 1+ (NEG); Urine Specific Gravity 1.015 (1.005-1.030); Urine Urobilinogen 0.2 mg/dL (0.2-1.0)
[2020-04-30 15:46] LABS: Urine Bacteria <20 /HPF (NONE SEEN); Urine RBC <5 /HPF (NONE SEEN)
[2020-04-30] MEDS ORDERED: NA CHLORIDE 0.9% 1,000 ML IV SCH (17:09)
[2020-04-30] MEDS: CLARITHROMYCIN 500 MG TABLET PO SCH (21:00)
[2020-04-30] MEDS: FAMOTIDINE 20 MG/2 ML VIAL IV PRN (22:29)
[2020-05-01] MEDS: PIPER/TAZO/NS 3.375gm 3.375 GM/100 ML BAG IVPB SCH ×3 (00:29→16:16)
[2020-05-01 04:33] LABS: Absolute Lymphocytes (CBC) 2.5 K/uL (0.7-4.9); Basophils % 0.1 % (0-1.3); Hematocrit 46.9 % (39.6-49.0); Lymphocytes % 11.2 % (15.3-44.8); MPV 7.7 fL (7.6-11.3); RBC Red Blood Cell Count 4.58 M/uL (4.33-5.43)
[2020-05-01 04:39] LABS: BUN Blood Urea Nitrogen 12 mg/dL (7-18); Bicarbonate 23 mmol/L (21-32); Glucose Level 121 mg/dL (74-106); Magnesium 2.4 mg/dL (1.8-2.4); Sodium Level 126 mmol/L (136-145)
[2020-05-01 05:26] LABS: Blood Morphology Comment NOT SEEN (NOT SEEN); Platelet Estimate ADEQ
--- NOTE | 2020-05-01 07:50 | RAD REPORT ---
EXAM DESCRIPTION: Orent Pa And Lat (2 Views)05/01/2020 6:08 am CLINICAL HISTORY: Cough COMPARISON: April 29 FINDINGS: Moderate bilateral pulmonary opacities. Heart is probably upper limits normal size IMPRESSION: Moderate bilateral pulmonary opacities could represent pulmonary edema or pneumonia
[2020-05-01] MEDS: LEVOTHYROXINE SOD 0.05 MG TABLET PO SCH (08:18)
[2020-05-01] MEDS: RITONAVIR 100 MG PO SCH ×2 (08:18→20:44)
[2020-05-01] MEDS: FOSAMPRENAVIR CALCIUM PO SCH ×2 (08:18→20:55)
[2020-05-01] MEDS: BUSPIRONE HCL 5 MG TABLET PO SCH ×2 (08:18→20:45)
[2020-05-01] MEDS: lisinopriL 20 MG TAB PO SCH (08:19)
[2020-05-01] MEDS: EMTRICITABINE/TENOFOVIR 1 TAB PO SCH (08:19)
[2020-05-01] MEDS: NEBIVOLOL HCL 20 MG TABLET PO SCH (08:19)
[2020-05-01] MEDS: CLARITHROMYCIN 500 MG TABLET PO SCH ×2 (08:19→20:46)
--- NOTE | 2020-05-01 11:20 | P.PN ---
Subjective Date of Service: 05/01/20 Chief Complaint: SBO Subjective: Other (Last night was noted to have slight tachypnea, and cough since yesterday. SpO2 95-99% on room air. feeling well this morning, reports slight cough, reportedly duodenal well nursing to remove nasal cannula despite SpO2 98%. Ambulating, tolerating full liquids, urinating, passing flatus, no BM) Review of Systems 10-point ROS is otherwise unremarkable Physical Examination - Vital Signs Temperature: 97.8 F Blood Pressure: 170/91 Pulse: 71 Respirations: 22 Pulse Ox (%): 99 Assessment & Plan Physician Review Additional Text: Physical Exam: Gen: NAD HEENT: normal conjunctiva, sclera anicteric CV: RRR, no murmur Pulm: CTAB, no wheeze/rales Abd: soft, nontender, nondistended, R groin with surgical dressing in place: c/d/i Ext: no rash/lesions, no edema Problem List SBO secondary incarcerated R inguinal hernia s/p R inguinal hernia repair (04/29) Leukocytosis nausea/vomiting, abdominal pain secondary to SBO, resolved Hyponatremia, secondary to hypovolemia HIV on antiretroviral therapy HTN -tolerated full liquid, advance to GI soft diet today. IV fluids discontinued early this morning -chest x-ray notable for new bilateral pulmonary opacities, pulmonary edema versus pneumonia -patient was noted to be and try/dehydrated on admission received ~ 4 L IV fluid, is notable improvement of his hypernatremia. -now with worsening leukocytosis, on Zosyn, infectious disease was consulted given his HIV history. Vancomycin was added today -will obtain echocardiogram to further evaluate heart function, lungs are clear on exam, patient remains hypertensive, may benefit from gentle diuresis -did not receive antiretrovirals on [facility] admission due to bowel obstruction, were restarted on 04/30 -patient reports "good" CD4 count, an undetectable viral load for at least 20 years -incentive spirometer ordered, at bedside Code: full VTE: Has been ambulating well, will start Lovenox Dispo: Anticipate discharge home in 24-48 hr Time Spent Managing Pts Care (In Minutes): 40
--- NOTE | 2020-05-01 11:48 | P.PN ---
Subjective Date of Service: 05/01/20 Chief Complaint: SBO Patient seen and examined at bedside. No acute complains at this time. Patient was SOB last night and was placed on 2L NC. His O2 stats remain in the 98-99 region. Review of Systems 10-point ROS is otherwise unremarkable Physical Examination - Vital Signs Temperature: 97.8 F Blood Pressure: 170/91 Pulse: 71 Respirations: 22 Pulse Ox (%): 99 - Physical Exam General: Alert, Oriented x3 HEENT: Atraumatic, Normocephalic Neck: Supple, 2+ carotid pulse no bruit Respiratory: Clear to auscultation bilaterally, Normal air movement Cardiovascular: No edema, Normal pulses, Normal S1 S2 Capillary refill: <2 Seconds Gastrointestinal: Normal bowel sounds, Other (right groin incision), Distended Musculoskeletal: No clubbing, No swelling Integumentary: No rashes, No breakdown Neurological: Normal gait Lymphatics: No axilla or inguinal lymphadenopathy Assessment And Plan - Plan Assessment: -s/p right inguinal hernia repair -Longstanding history of HIV infection -leukocytosis Plan: -incision site is clean dry and intact with no signs of acute infection. Minimal bruising noted around incision site -patient is currently being followed by HIV disease team in [place] on current antiviral medications -patient has been started on vanco in addition to Zosyn and clarithromycin due to up trending WBC count. Unclear source of infection/leukocytosis at this time- CXR showed moderate bilateral opacities concerning for pulmonary edema or pneumonia. Will continue to monitor closely. :
[2020-05-01] MEDS: ENOXAPARIN 40 MG/0.4 ML SQ SCH (12:15)
[2020-05-01] MEDS: VANCOMYCIN 1.25 GM in NA CHLORIDE 0.9% 250 ML IVPB SCH ×2 (12:15→23:17)
[2020-05-02] MEDS: PIPER/TAZO/NS 3.375gm 3.375 GM/100 ML BAG IVPB SCH ×2 (00:57→08:33)
[2020-05-02] MEDS: MORPHINE 2 MG/ML SYR IV PRN (01:42)
[2020-05-02] MEDS: FAMOTIDINE 20 MG/2 ML VIAL IV PRN (04:08)
[2020-05-02 05:51] LABS: Absolute Lymphocytes (CBC) 1.9 K/uL (0.7-4.9); Basophils % 0.1 % (0-1.3); Hematocrit 39.8 % (39.6-49.0); Lymphocytes % 14.3 % (15.3-44.8); MPV 7.5 fL (7.6-11.3); RBC Red Blood Cell Count 3.92 M/uL (4.33-5.43)
[2020-05-02 06:05] LABS: BUN Blood Urea Nitrogen 11 mg/dL (7-18); Bicarbonate 27 mmol/L (21-32); Glucose Level 114 mg/dL (74-106); Potassium 3.5 mmol/L (3.5-5.1); Sodium Level 129 mmol/L (136-145)
[2020-05-02] MEDS: NEBIVOLOL HCL 20 MG TABLET PO SCH (08:29)
[2020-05-02] MEDS: FOSAMPRENAVIR CALCIUM PO SCH (08:30)
[2020-05-02] MEDS: EMTRICITABINE/TENOFOVIR 1 TAB PO SCH (08:30)
[2020-05-02] MEDS: RITONAVIR 100 MG PO SCH (08:31)
[2020-05-02] MEDS: LEVOTHYROXINE SOD 0.05 MG TABLET PO SCH (08:31)
[2020-05-02] MEDS: lisinopriL 20 MG TAB PO SCH (08:31)
[2020-05-02] MEDS: BUSPIRONE HCL 5 MG TABLET PO SCH (08:31)
[2020-05-02] MEDS: ENOXAPARIN 40 MG/0.4 ML SQ SCH (08:32)
[2020-05-02] MEDS: CLARITHROMYCIN 500 MG TABLET PO SCH (08:32)
--- NOTE | 2020-05-02 08:34 | ECHO ---
HEIGHT: 5 ft 9 in WEIGHT: 155 lb 0 oz DATE OF STUDY: 05/01/[address]: Darron Zuluaga MD 2-DIMENSIONAL: YES M.MODE: YES DOPPLER: YES COLOR FLOW: YES TDS: YES PORTABLE: DEFINITY: BUBBLE STUDY: DIAGNOSIS: SHORTNESS OF BREATH/ PULMONARY EDEMA CARDIAC HISTORY: CATHERIZATION: SURGERY: PROSTHETIC VALVE: PACEMAKER: MEASUREMENTS (cm) DIASTOLIC (NORMALS) SYSTOLIC (NORMALS) IVSd 1.0 (0.6-1.2) LA Diam 4.7 (1.9-4.0) LVEF 55-60% LVIDd 4.3 (3.5-5.7) LVIDs 2.7 (2.0-3.5) %FS 38% LVPWd 1.2 (0.6-1.2) Ao Diam 2.8 (2.0-3.7) 2 DIMENSIONAL ASSESSMENT: RIGHT ATRIUM: NORMAL LEFT ATRIUM: NORMAL RIGHT VENTRICLE: NORMAL LEFT VENTRICLE: NORMAL TRICUSPID VALVE: NORMAL MITRAL VALVE: MITRAL ANNULAR CALCIFICATION, MILD MITRAL REGURGITATION PULMONIC VALVE: NORMAL AORTIC VALVE: NORMAL PERICARDIAL EFFUSION: NONE AORTIC ROOT: NORMAL LEFT VENTRICULAR WALL MOTION: NORMAL DOPPLER/COLOR FLOW: SEE BELOW COMMENTS: NORMAL LEFT VENTRICULAR EJECTION FRACTION 55-60% WITH NORMAL WALL MOTION. MITRAL ANNULAR CALCIFICATION, MILD MITRAL REGURGITATION. DIASTOLIC DYSFUNCTION. TECHNOLOGIST: KANWAL HASSAN
[2020-05-02 08:35] VITALS: BP 179/86
[2020-05-02 08:42] VITALS: TEMP 97.9
[2020-05-02] MEDS ORDERED: POTASSIUM CL SA 10 MEQ TAB PO ONE (09:00)
[2020-05-02 09:50] VITALS: O2SAT 96
[2020-05-02] MEDS: VANCOMYCIN 1.25 GM in NA CHLORIDE 0.9% 250 ML IVPB SCH (11:00)
--- NOTE | 2020-05-02 19:47 | P.DS ---
Admission Date: 04/29/20 Discharge Date: 05/02/20 Disposition: ROUTINE DISCHARGE Discharge Condition: GOOD Reason for Admission: SBO, incarcerated R inguinal hernia Consultations: General Surgery - Dr. Lopez Infectious Disease - Dr. Abreu Procedures: CXR (04/29): The lungs are mildly emphysematous but grossly clear. The heart is normal in size. No displaced fractures. CXR (05/01): Moderate bilateral pulmonary opacities could represent pulmonary edema or pneumonia TTE (05/01): EF: 55-60%, normal wall motion. mitral annular calcification. mild MR. diastolic dysfunction. Emergent open repair of icarcerated right inguinal hernia with mesh (04/29): by Dr. Crispin Lopez Problem List: SBO secondary incarcerated R inguinal hernia s/p R inguinal hernia repair (04/29) Leukocytosis nausea/vomiting, abdominal pain secondary to SBO, resolved Acute on Chronic Hyponatremia, secondary to hypovolemia HIV on antiretroviral therapy HTN Brief History of Present Illness: 64yo M, PMH: HIV, HTN presents to ED due to several days of nausea, abdominal distention and pain. He was seen by general surgery in office and had CT abd/pelvis done yesterday which revealed SBO in R abdomen - at site of R inguinal hernia. He was advised to present to ED yesterday, however did not present until today. He was also noted to have L inguinal hernia as well. He reports no PO intake in ~4 days. Last BM was ~3 days ago, passing very little flatus. He had an episode of NBNB emesis last night and this morning. He denies any fevers, chest pain, SOB, swelling. He reports h/o HIV and has been "stable" since 1999, and takes anti-retrovirals - sees ID in [place]. Hospital Course: Patient was started on mIVF at 100ml/hr, Zosyn, and underwent emergent surgical repair of his incarcerated hernia/SBO without complication. ID was consulted for recommendations regarding antibiotic coverage if patient would require prolonged NPO due to obstruction. Patient did well postoperatively, he was kept on full liquids on POD 1, he was tolerating diet, passing flatus, afebrile, and ambulating several times around the floor. In the evening of POD 1 patient was noted to briefly have some tachypnea and slight wheeze, with SpO2: 98% on room air. He was breathing more comfortably within 15 minutes, however patient was placed on oxygen through the night for comfort only and he refused to remove it. On POD 2, he was breathing comfortably on room air, tolerating full liquid diet, passing flatus, afebrile, and asking to be discharged home. His leukocytosis increased from 13k to 22k, vancomycin was added. CXR was obtained and showed bilateral pulmonary opacities concerning for edema vs pneumonia. Patient reported no CHF history, still with slight hyponatremia, had clear lungs on exam, and no edema, so diuresis was not given. He continued to feel well and his diet was advanced to soft diet. On POD 3, he reported feeling very well and ready for discharge. His leukocytosis was down to 13k, afebrile, and SpO2: 98% on room air. He was ambulating frequently, had a BM, and without complaints. He was discharged home with 7 days of doxycycline and Tylenol #3. He was hypotensive on admission down to 90s/60s, improved with IVF and was hypertensive post-operatively. Likely due to some rebound hypertension from missing anti-hypertensives and from the IVF hydration - received ~4L IV, but diuresed well with 2L UOP. His BP improved and on the morning of discharge was noted to be 140-155/80-85. He is to f/u with Dr. Lopez in 1 week. He was noted to have mild ecchymosis surrounding his surgical incision, no appreciable hematoma or evidence of infection. Patient was unable to receive his antiretrovirals on the day of admission due to the SBO / vomiting / emergent surgery. These were restarted on POD 1. Vital Signs/Physical Exam: Temp Pulse Resp BP Pulse Ox 97.9 F 80 18 179/86 H 98 05/02/20 08:00 05/02/20 08:29 05/02/20 08:00 05/02/20 08:29 05/02/20 08:00 General: Alert, In no apparent distress, Oriented x3 HEENT: Sclerae nonicteric Neck: Supple, JVD not distended Respiratory: Clear to auscultation bilaterally, Normal air movement Cardiovascular: No edema, Regular rate/rhythm Gastrointestinal: Soft and benign, Non-distended, No tenderness Musculoskeletal: No erythema, No tenderness Integumentary: No rashes, Other (R groin: surgical incision, staple intact, surrounding ecchymosis, no hematoma palpable) Neurological: Normal speech, Normal strength at 5/5 x4 extr, Normal affect Laboratory Data at Discharge: WBC 13.40 K/uL (4.3-10.9) H D 05/02/20 05:12 Hgb 13.8 g/dL (13.6-17.9) 05/02/20 05:12 Hct 39.8 % (39.6-49.0) D 05/02/20 05:12 Plt Count 255 K/uL (152-406) 05/02/20 05:12 PT 11.1 SECONDS (9.5-12.5) 04/29/20 09:51 INR 0.94 04/29/20 09:51 Sodium 129 mmol/L (136-145) L 05/02/20 05:12 Potassium 3.5 mmol/L (3.5-5.1) 05/02/20 05:12 BUN 11 mg/dL (7-18) 05/02/20 05:12 Creatinine 0.77 mg/dL (0.55-1.3) 05/02/20 05:12 Glucose 114 mg/dL (74-106) H 05/02/20 05:12 Magnesium 2.4 mg/dL (1.8-2.4) 05/01/20 04:04 Total Bilirubin 0.5 mg/dL (0.2-1.0) 04/30/20 04:12 AST 15 U/L (15-37) 04/30/20 04:12 ALT 18 U/L (12-78) 04/30/20 04:12 Alkaline Phosphatase 75 U/L (45-117) 04/30/20 04:12 Lipase 69 U/L (73-393) L 04/29/20 09:51 Home Medications: Buspirone HCl [Buspar] 10 mg PO BID 04/29/20 Clarithromycin 500 mg PO BID 04/29/20 Emtricitabine/Tenofovir [Truvada* 200 mg-300 mg Tablet] 200 mg PO DAILY 04/29/20 Fosamprenavir Calcium 700 mg PO BID 04/29/20 Levothyroxine [Synthroid*] 0.05 mg PO DAILY 04/29/20 Lisinopril [Zestril] 40 mg PO DAILY 04/29/20 Modafinil [Provigil] 200 mg pe PO BID 04/29/20 Nebivolol HCl [Bystolic*] 20 mg PO DAILY 04/29/20 Ritonavir 100 mg PO BID 04/29/20 Nebivolol HCl [Bystolic] 20 mg PO DAILY 04/30/20 Codeine/APAP [Tylenol W/Codeine #3 tab] 1 tab PO Q4H PRN #15 tab 05/02/20 Doxycycline Hyclate 100 mg PO BID 7 Days #14 tablet 05/02/20 New Medications: Doxycycline Hyclate 100 mg PO BID 7 Days #14 tablet Codeine/APAP [Tylenol W/Codeine #3 tab] 1 tab PO Q4H PRN #15 tab PRN Reason: Pain Physician Discharge Instructions: You were found to have an incarcerated right inguinal hernia - causing bowel obstruction. You underwent surgical repair. You had an increase in your white blood cell count up to 22 thousand, which improved the following day to 13 thousand. You were covered with prophylactic antibiotics. You are discharged on 7 days of doxycycline and Tylenol #3 for pain. You will follow up with Dr. Lopez in 1 week. Follow up with your PCP within 1-2 weeks as well. Your sodium was noted to be low and improved with IV fluid hydration from [address] warm compress on your incision twice a day. Diet: Regular Activity: No lifting more than 10 lbs Followup: Crispin Lopez MD [Primary Care Provider] - Time spent managing pt's care (in minutes): 45
== END 2020-05-02 12:15 | disposition home or self-care (01) | DRG 353 ==
LOC: ER 08:40 → ERHOLD 11:48 → 2ND 17:57
PROVIDERS: ADMIT Hospitalist; ATTEND Hospitalist
PROC: 0FT44ZZ Resection of Gallbladder, Percutaneous Endoscopic Approach (ICD-10-PCS; 2020-04-29)
PROC: 0WQF0ZZ Repair Abdominal Wall, Open Approach (ICD-10-PCS; principal; 2020-04-29 15:30)
DX: K40.00 Bilateral inguinal hernia, with obstruction, without gangrene, not specified as recurrent (principal); J18.9 Pneumonia, unspecified organism; K80.00 Calculus of gallbladder with acute cholecystitis without obstruction; E87.1 Hypo-osmolality and hyponatremia; E87.0 Hyperosmolality and hypernatremia; I10 Essential (primary) hypertension; E86.1 Hypovolemia; D72.829 Elevated white blood cell count, unspecified; F17.210 Nicotine dependence, cigarettes, uncomplicated; R60.9 Edema, unspecified; Z90.49 Acquired absence of other specified parts of digestive tract; Z21 Asymptomatic human immunodeficiency virus [HIV] infection status; Z88.1 Allergy status to other antibiotic agents; Z79.890 Hormone replacement therapy; Z79.899 Other long term (current) drug therapy; Z20.822 Contact with and (suspected) exposure to COVID-19
CPT/HCPCS: 36415; 71045; 71046; 74176; 80048; 80053; 80076; 81003; 81015; 83690; 83735; 83935; 84145; 84300; 84484; 85025; 85610; 88302; 93005; 93306; 94010; 94760; 96374; 96375; 99285; J0330; J1100; J1650; J2270; J2405; J2543; J2704; J2710; J3010; J3370; J3490; J7030; J7040; J7050; J7120; U0003

== ENCOUNTER 2020-05-02 14:07 | Emergency (ER) | payer OTHER ==
[2020-05-02] MEDS ORDERED: ETOMIDATE 20 MG/10 ML VIAL IV ONE (14:08)
[2020-05-02] MEDS ORDERED: SUCCINYLCHOLINE 20 MG/ML (10 ML) IV ONE (14:08)
[2020-05-02] MEDS ORDERED: FAMOTIDINE 20 MG/2 ML VIAL IV ONE (14:21)
[2020-05-02] MEDS ORDERED: METHYLPREDNISOLONE 125 MG INJ ONE (14:21)
[2020-05-02] MEDS ORDERED: NA CHLORIDE 0.9% 1,000 ML ONE (14:21)
[2020-05-02] MEDS ORDERED: LEVALBUTEROL 1.25 MG/3 ML NEB ONE (14:24)
[2020-05-02] MEDS ORDERED: MIDAZOLAM HCL 2 MG/2 ML INJ ONE (14:29)
[2020-05-02] MEDS ORDERED: RSI MEDICATION KIT IV ONE (14:29)
[2020-05-02] MEDS ORDERED: NITROGLYCERIN 1 GM PKT TD ONE (14:34)
[2020-05-02 14:49] LABS: Absolute Lymphocytes (CBC) 3.9 K/uL (0.7-4.9); Basophils % 0.2 % (0-1.3); Hematocrit 45.8 % (39.6-49.0); Lymphocytes % 20.3 % (15.3-44.8); MPV 8.1 fL (7.6-11.3); RBC Red Blood Cell Count 4.43 M/uL (4.33-5.43)
--- NOTE | 2020-05-02 14:51 | RAD REPORT ---
EXAM DESCRIPTION: RAD - Chest Single View - 05/02/2020 2:30 pm CLINICAL HISTORY: SOB Chest pain. COMPARISON: Chest Pa And Lat (2 Views) dated 05/01/2020; Chest Single View dated 04/29/2020 FINDINGS: Portable technique limits examination quality. Severe bilateral pulmonary opacities are seen, significantly progressive since yesterday's study. Thi s likely represents pneumonia or ARDS. The heart is normal in size.
--- NOTE | 2020-05-02 14:56 | RAD REPORT ---
EXAM DESCRIPTION: RAD - Chest Single View - 05/02/2020 2:47 pm CLINICAL HISTORY: INTUBATION Chest pain. COMPARISON: Chest Single View dated 05/02/2020; Chest Pa And Lat (2 Views) dated 05/01/2020; Chest Singl e View dated 04/29/2020 FINDINGS: Portable technique limits examination quality. Extensive bilateral pulmonary opacities are again seen. Tip of the ET tube is above the pito. Cardi ac size is within limits.
[2020-05-02 15:05] LABS: Albumin 3.1 g/dL (3.4-5.0); Bilirubin Direct 0.3 mg/dL (0-0.2); Bilirubin Total 1.2 mg/dL (0.2-1.0); Magnesium 2.4 mg/dL (1.8-2.4); Potassium 3.8 mmol/L (3.5-5.1); Protein, Total 7.3 g/dL (6.4-8.2); Troponin (Emerg Dept Use Only) 0.14 ng/mL (0.0-0.045)
[2020-05-02 15:06] LABS: Protime INR 1.01
--- NOTE | 2020-05-02 15:59 | RAD REPORT ---
EXAM DESCRIPTION: CT - Chest For Pe Angio - 05/02/2020 3:51 pm CLINICAL HISTORY: Chest pain. DYSPNEA COMPARISON: No comparisons TECHNIQUE: CT angiogram of the pulmonary arteries was performed with MIP. All CT scans are performed using dose optimization technique as appropriate and may include automated exposure control or mA/KV adjustment according to patient size. FINDINGS: No evidence of pulmonary thromboembolism. No acute aortic finding demonstrated. Endotracheal tube tip is above the pito. Enteric tube descends into the stomach. Large areas of consolidated lung are seen particularly in both lower lobes. This appears superimposed on emphysematous pattern and moderate bilateral ground-glass lung opacities. No significant pericardial or pleural fluid. No concerning bony finding. IMPRESSION: No evidence of pulmonary thromboembolism. Large, bilateral lung consolidations are seen, greatest the lower lobes. Findings likely indicate pne umonia or ARDS.
[2020-05-02 17:24] LABS: Arterial Blood Carboxyhemoglob 1.1 % (0-1.5); Blood Gas Oxyhemoglobin 93.9 % (94-97)
[2020-05-02] MEDS ORDERED: PIPER/TAZO/NS 4.5gm 4.5 GM/100 ML BAG IV SCH (18:00)
[2020-05-02] MEDS ORDERED: PIPER/TAZO/NS 4.5gm 4.5 GM/100 ML BAG IV ONE (18:00)
[2020-05-02] MEDS ORDERED: NA CHLORIDE 0.9% 500 ML ONE (18:11)
[2020-05-02] MEDS ORDERED: FENTANYL CITR 100 MCG/2 ML ONE (18:30)
--- NOTE | 2020-05-02 19:26 | EDPHYS ---
Physician Documentation [facility] Name: Gil Mckeon Age: 64 yrs Sex: Male : 1955 Arrival Date: 05/02/2020 Time: 14:10 Bed 3 Private MD: ED Physician Joaquim Zuluaga HPI: 05/02 15:45 This 64 yrs old Male presents to ER via Wheelchair with complaints of jr8 Breathing Difficulty. 15:45 The patient has shortness of breath at rest. Onset: The symptoms/episode began/occurred jr8 acutely, just prior to arrival, today. Duration: The symptoms are continuous, and are markedly worse than the original presentation. The patient's shortness of breath is aggravated by talking, walking. Associated signs and symptoms: The patient has no apparent associated signs or symptoms. Severity of symptoms: At their worst the symptoms were severe. The patient has not experienced similar symptoms in the past. The patient has been recently seen by a physician:. Patient arrived POV to the ambulance bay with complaints of shortness of breath. Patient was released today from the inpatient hospital setting after undergoing right inguinal hernia surgery. Patient stated that he took a tylenol #3 this afternoon and then about 30 minutes prior to arrival started to feel short of breath. History of AIDS, HTN, and smokes but denies cardiac or lung problems in the past. Patient was immediately brought to ED room 3 for acute respiratory failure with hypoxia and cyanosis . Historical: - Allergies: 14:58 Bactrim; iw - PMHx: 14:58 AIDS; Hypertension; iw - PSHx: 14:58 Appendectomy; iw - Immunization history:: Adult Immunizations unknown. - Social history:: Smoking status: Patient reports the use of cigarette tobacco products, unknown amount. ROS: 15:45 Eyes: Negative for injury, pain, redness, and discharge, ENT: Negative for injury, jr8 pain, and discharge, Neck: Negative for injury, pain, and swelling, Cardiovascular: Negative for chest pain, palpitations, and edema, Abdomen/GI: Negative for abdominal pain, nausea, vomiting, diarrhea, and constipation, Back: Negative for injury and pain, MS/Extremity: Negative for injury and deformity, Skin: Negative for injury, rash, and discoloration, Neuro: Negative for headache, weakness, numbness, tingling, and seizure. 15:45 Respiratory: Positive for dyspnea on exertion, shortness of breath, wheezing. Exam: 15:45 Eyes: Pupils equal round and reactive to light, extra-ocular motions intact. Lids and jr8 lashes normal. Conjunctiva and sclera are non-icteric and not injected. Cornea within normal limits. Periorbital areas with no swelling, redness, or edema. ENT: Nares patent. No nasal discharge, no septal abnormalities noted. Tympanic membranes are normal and external auditory canals are clear. Oropharynx with no redness, swelling, or masses, exudates, or evidence of obstruction, uvula midline. Mucous membranes moist. 15:45 Neck: Trachea midline, no thyromegaly or masses palpated, and no cervical lymphadenopathy. Supple, full range of motion without nuchal rigidity, or vertebral point tenderness. No Meningismus. 15:45 MS/ Extremity: Pulses equal, no cyanosis. Neurovascular intact. Full, normal range of motion. Neuro: Awake and alert, GCS 15, oriented to person, place, time, and situation. Motor strength 5/5 in all extremities. Sensory grossly intact. 15:45 Constitutional: The patient appears alert, awake, in obvious distress, severely distressed, restless. 15:45 Cardiovascular: Rate: tachycardic, Rhythm: regular, Pulses: Pulses are 2+ in right radial artery and left radial artery. Heart sounds: normal, normal S1and S2, no S3 or S4, no murmur, no rub, no gallop, Edema: is not appreciated. 15:45 Respiratory: severe repiratory distress is noted, Respirations: labored breathing, that is severe, intercostal retractions, that is severe, tachypnea, that is severe, Breath sounds: rales, that are moderate, are located in both bases, wheezing: expiratory that is mild, is heard diffusely, Respiratory rate: 40 15:45 Abdomen/GI: Palpation: soft, in all quadrants, Right inguinal surgical site noted with dressing over it. Bruising noted to lower abdomen and inguinal region extending into testicles . 15:45 Skin: Appearance: Color: cyanotic, Temperature: cool, Moisture: diaphoretic. Vital Signs: 14:10 BP 223 / 123; Pulse 110; Resp 40 S; Pulse Ox 97% on Non-rebreather mask; jd3 14:17 BP 182 / 145; Pulse 108; Resp 25 S; Pulse Ox 90% on Nebulizer Mask; jd3 14:27 BP 196 / 110; Pulse 117; Resp 24 A; Pulse Ox 98% on ETT ambu; jd3 14:33 BP 222 / 136; Pulse 102; Resp 16 A; Pulse Ox 93% on ETT vent; jd3 14:47 BP 181 / 112; Pulse 114; Resp 22 A; Pulse Ox 94% on ETT vent; jd3 14:53 BP 183 / 100; Pulse 110; Resp 23 A; Pulse Ox 95% on ETT vent; jd3 15:15 BP 175 / 94; Pulse 94; Resp 16 S; Pulse Ox 93% on ETT vent; jd3 15:25 BP 178 / 98; Pulse 93; Resp 16 A; Pulse Ox 94% on ETT vent; jd3 15:35 BP 177 / 94; Pulse 92; Resp 16 A; Pulse Ox 96% on ETT vent; jd3 15:57 BP 155 / 88; Pulse 91; Resp 16 A; Pulse Ox 97% on ETT vent; jd3 16:12 BP 174 / 92; Pulse 87; Resp 16 A; Pulse Ox 96% on ETT vent; Weight 70.31 kg (R); jd3 16:36 BP 180 / 94; Pulse 86; Resp 17 A; Pulse Ox 96% on ETT vent; jd3 16:45 BP 180 / 94; Pulse 84; Resp 19 A; Pulse Ox 96% on ETT vent; jd3 17:13 BP 176 / 93; Pulse 81; Resp 16 S; Pulse Ox 97% on R/A; jd3 17:48 BP 124 / 77; Pulse 75; Resp 18 A; Pulse Ox 100% on ETT vent; jd3 18:32 BP 116 / 77; Pulse 66; Resp 16 A; Pulse Ox 100% on ETT vent; jd3 19:00 BP 112 / 70; Pulse 67; Resp 11; Pulse Ox 100% on 100% FiO2 ETT vent; rr5 19:30 BP 151 / 82; Pulse 77; Resp 17; Pulse Ox 100% on 100% FiO2 ETT vent; rr5 20:00 BP 98 / 70; Pulse 65; Resp 16; Pulse Ox 100% on 95% FiO2 ETT vent; rr5 21:00 BP 128 / 75; Pulse 61; Resp 16; Pulse Ox 100% on 85% FiO2 ETT vent; rr5 22:44 BP 107 / 70; Pulse 61; Resp 16; Temp 97.5; Pulse Ox 100% on 85% FiO2 ETT vent; rv Procedures: 14:28 Intubation: Ventilated with 100% NRB prior to procedure. O2 saturation prior to jr8 procedure was 89 %. Intubated orally using # 3 Jazlyn blade with 7.5 mm ETT. was successful on first attempt. Ventilated with Ambu bag. ventilator. Cricoid pressure applied during procedure. Tube secured with ETT rivero at center of mouth measured 23 cm at teeth. Placement verified by CXR, CO2 detector with (+) color change, auscultating bilateral breath sounds, O2 saturation after procedure was 100 %. Patient tolerated well. MDM: 14:27 Patient medically screened. rn 19:22 Data reviewed: vital signs, nurses notes, lab test result(s), EKG, radiologic studies, jr CT scan, plain films. Data interpreted: Pulse oximetry: on ventilator is 100 %. Interpretation: normal. Counseling: I had a detailed discussion with the patient and/or guardian regarding: the historical points, exam findings, and any diagnostic results supporting the discharge/admit diagnosis, lab results, radiology results, the need to transfer to another facility, for higher level of care. 19:22 ED course: Spoke with family about needing transfer due to no ICU beds at this time. jr[address] Walker with [facility] who accepted for ICU care . 05/02 14:28 Order name: Basic Metabolic Panel rn 05/02 14:28 Order name: CBC with Diff; Complete Time: 15:11 rn 05/02 14:28 Order name: LFT's; Complete Time: 15:11 rn 05/02 14:28 Order name: Magnesium; Complete Time: 15:11 rn 05/02 14:28 Order name: NT PRO-BNP; Complete Time: 15:11 rn 05/02 14:28 Order name: PT-INR; Complete Time: 15:11 rn 05/02 14:11 Order name: CXR XRAY; Complete Time: 14:58 jl7 05/02 14:28 Order name: Troponin (emerg Dept Use Only); Complete Time: 15:11 rn 05/02 14:28 Order name: Basic Metabolic Panel; Complete Time: 15:11 EDMS 05/02 16:30 Order name: SARS-COV-2 RT PCR; Complete Time: 17:12 EDMS 05/02 17:12 Order name: ABG; Complete Time: 18:17 8 05/02 18:17 Order name: Blood Culture Adult (2) 8 05/02 18:17 Order name: Procalcitonin 8 05/02 14:28 Order name: EKG; Complete Time: 14:29 rn 05/02 14:28 Order name: Cardiac monitoring; Complete Time: 14:29 rn 05/02 14:29 Order name: CT Chest For PE Angio; Complete Time: 15:59 rn 05/02 14:44 Order name: Chest Single View; Complete Time: 14:58 EDMS 05/02 14:28 Order name: EKG - Nurse/Tech; Complete Time: 14:30 rn 05/02 14:28 Order name: IV Saline Lock; Complete Time: 16:47 rn 05/02 14:28 Order name: Labs collected and sent; Complete Time: 16:47 rn 05/02 14:28 Order name: O2 Per Protocol; Complete Time: 16:47 rn 05/02 14:28 Order name: O2 Sat Monitoring; Complete Time: 16:47 rn 05/02 14:54 Order name: Vidal; Complete Time: 14:54 mh5 Administered Medications: 14:10 Drug: EPINEPHrine 1mg/mL 1:1,000 0.5 mg Route: IM; Site: left vastus lateralis; jd3 15:00 Follow up: Response: No adverse reaction jd3 14:13 Drug: Xopenex (3) 1.25 mg Route: Inhalation; jd3 15:00 Follow up: Response: No adverse reaction jd3 14:15 Drug: Nitro Drip - (Nitroglycerin 50 mg, D5W 250 ml) Route: IV; Rate: 5 mcg/min; Site: jd3 left antecubital; 17:47 Follow up: Response: No adverse reaction; IV Status: Order to discontinue infusion jd3 14:15 Drug: Lasix 80 mg Route: IVP; Site: right antecubital; jd3 15:00 Follow up: Response: No adverse reaction jd3 14:19 Drug: Nitro-Bid Ointment 2 % 1 inches Route: Transdermal; Site: anterior chest wall; jd3 18:26 Follow up: Response: No adverse reaction; No adverse reaction, order to take off at jd3 this time 14:24 Drug: Etomidate 20 mg Route: IVP; Site: right antecubital; jd3 15:20 Follow up: Response: No adverse reaction jd3 14:24 Drug: Succinylcholine 100 mg Route: IVP; Site: right antecubital; jd3 15:20 Follow up: Response: No adverse reaction jd3 14:42 Drug: Propofol 5 mcg/kg/min Route: IV; Rate: calculated rate; Site: right antecubital; jd3 18:25 Follow up: Response: No adverse reaction; IV Status: Infusion continued upon admission jd3 20:10 Follow up: IV Status: Infusion continued upon transfer rv 14:53 Drug: VecuroNIUM 10 mg Route: IVP; Site: right antecubital; jd3 15:50 Follow up: Response: No adverse reaction jd3 15:15 Drug: Dilaudid 1 mg Route: IVP; Site: left antecubital; jd3 19:06 Follow up: Response: No adverse reaction; RASS: Alert and Calm (0) jd3 18:23 Drug: Zosyn 4.5 grams Route: IVPB; Infused Over: 60 mins; Site: left antecubital; jd3 20:10 Follow up: IV Status: Completed infusion rv 18:45 Drug: fentaNYL (PF) 75 mcg Route: IVP; Site: left antecubital; jd3 19:07 Follow up: Response: No adverse reaction; RASS: Alert and Calm (0) j Disposition: 19:24 Critical Care:. [facility] 05/03 08:29 Co-signature as Attending Physician, Joaquim Zuluaga MD. rn Disposition: 05/02/20 19:25 Transfer ordered to Other Acute Care Facility. Diagnosis are Pneumonia due to other specified bacteria, Acute respiratory failure, Acute respiratory distress syndrome. - Reason for transfer: Higher level of care. - Accepting physician is Dr. Walker. - Condition is Serious. - Problem is new. - Symptoms have improved. Critical care time excluding procedures: 05/02 19:24 Critical care time: Bedside Care: 20 minutes, Consultation: 10 minutes, Family jr8 Intervention: 10 minutes. Total time: 40 minutes Signatures: Dispatcher [employer] Katlin Burnette RN RN iw Nieto, Roman, MD MD rn Roszak, Josh, PA PA 8 Catrina Lopez mh5 Davy Freedman, RN RN jd3 Johnson Jones, RN RN rv Corrections: (The following items were deleted from the chart) 15:17 14:57 CORONAVIRUS+ ordered. EDMS EDMS 22:50 19:25 05/02/2020 19:25 Transfer ordered to Other Acute Care Facility. Diagnosis is rv Pneumonia due to other specified bacteria; Acute respiratory failure; Acute respiratory distress syndrome. Reason for transfer: Higher level of care. Accepting physician is Dr. Walker. Condition is Serious. Problem is new. Symptoms have improved. jr8
--- NOTE | 2020-05-02 19:26 | ER ---
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 Coronavirus screen: shortness of breath. Ebola Screen: Patient negative for fever greater than or equal to 101.5 degrees Fahrenheit, and additional compatible Ebola Virus Disease symptoms Patient denies exposure to infectious person. Patient denies travel to an Ebola-affected area in the 21 days before illness onset. No symptoms or risks identified at this time. Initial Sepsis Screen: Does the patient meet any 2 criteria? Does the patient have a suspected source of infection? No. Patient's initial sepsis screen is negative. Risk Assessment: Do you want to hurt yourself or someone else? Patient reports no desire to harm self or others. Onset of symptoms was May 02, 2020. 14:10 Method Of Arrival: Wheelchair 14:10 Acuity: AIDEN 1 iw Historical: - Allergies: 14:58 Bactrim; iw - PMHx: 14:58 AIDS; Hypertension; iw - PSHx: 14:58 Appendectomy; iw - Immunization history:: Adult Immunizations unknown. - Social history:: Smoking status: Patient reports the use of cigarette tobacco products, unknown amount. Screenin:46 Abuse screen: Denies threats or abuse. Nutritional screening: No deficits noted. jd3 Tuberculosis screening: No symptoms or risk factors identified. Fall Risk None identified. Assessment: 14:10 General: Appears distressed, uncomfortable, Behavior is anxious, restless. Pain: jd3 Complains of pain in chest Quality of pain is described as sharp. Neuro: Level of Consciousness is awake, alert, obeys commands, Oriented to person, place, time, situation. Cardiovascular: Heart tones present Rhythm is sinus tachycardia. Respiratory: Reports shortness of breath at rest labored breathing Respiratory effort is labored, gasping, shallow, Respiratory pattern is tachypnea Breath sounds with crackles bilaterally. GI: Abdomen is round non-distended, Abd is soft and non tender X 4 quads. Reports recent surgery for hernia repair and bowel obstruction. bruising noted to lower abdomen. : No signs and/or symptoms were reported regarding the genitourinary system. EENT: No signs and/or symptoms were reported regarding the EENT system. Derm: Skin is intact, Skin is clammy, diaphoretic, Skin is dusky, mottled, Skin temperature is warm. Musculoskeletal: Range of motion: intact in all extremities. 14:15 Reassessment: provider at bedside. jd3 14:26 Reassessment: primary RN at bedside titrating Nitro drip per provider's verbal order. jd3 14:30 Reassessment: pt appears more relaxed on the ventilator. Neuro: Level of Consciousness jd3 is intubated. Cardiovascular: Heart tones present Rhythm is sinus tachycardia. Respiratory: Airway via oral intubation Breath sounds with crackles bilaterally. 14:45 Reassessment: No changes from previously documented assessment. Patient and/or family jd3 updated on plan of care and expected duration. Pain level reassessed. 14:53 Reassessment: Patient and/or family updated on plan of care and expected duration. Pain jd3 level reassessed. pt moving around, medication order received, see MAR. 14:53 Reassessment: Patient and/or family updated on plan of care and expected duration. Pain jd3 level reassessed. pt appears relaxed. repiration's appear relaxed on ventilator. 15:15 Reassessment: Patient and/or family updated on plan of care and expected duration. Pain jd3 level reassessed. pt appears relaxed with respirations on vent. respiratory therapy at bedside. Respiratory: Airway via oral intubation. 15:30 Reassessment: No changes from previously documented assessment. Patient and/or family jd3 updated on plan of care and expected duration. Pain level reassessed. 15:50 Reassessment: No changes from previously documented assessment. Patient and/or family jd3 updated on plan of care and expected duration. Pain level reassessed. pt to CT with primary nurse, RT, and communication electronic technician X 2. 15:55 Reassessment: Patient and/or family updated on plan of care and expected duration. Pain jd3 level reassessed. pt back from CT. 15:55 Respiratory: Airway via oral intubation Respiratory effort is relaxed. jd3 16:15 Reassessment: No changes from previously documented assessment. Patient and/or family jd3 updated on plan of care and expected duration. Pain level reassessed. 16:30 Reassessment: No changes from previously documented assessment. Patient and/or family jd3 updated on plan of care and expected duration. Pain level reassessed. 17:13 Reassessment: Patient and/or family updated on plan of care and expected duration. Pain jd3 level reassessed. resting in bed, Nitro drip at 50 , propofol at 30. Cardiovascular: Heart tones present Rhythm is regular. Respiratory: Airway via oral intubation Respiratory effort is relaxed. 17:47 Reassessment: Patient and/or family updated on plan of care and expected duration. Pain jd3 level reassessed. nitro drip stopped per provider's order. Respiratory: Airway via oral intubation. 18:32 Reassessment: No changes from previously documented assessment. Patient and/or family jd3 updated on plan of care and expected duration. Pain level reassessed. propofol at 15, IV and transdermal nitro discontinued. 18:32 Respiratory: Airway via oral intubation Respiratory effort is relaxed. jd3 19:00 General: Appears comfortable, Behavior is sedated. rv 19:00 Pain: Unable to use pain scale. Patient is intubated. Neuro: Level of Consciousness is rv sedated. Cardiovascular: Patient's skin is warm and dry. Rhythm is sinus rhythm with PACs. Respiratory: Airway via oral intubation Respiratory effort is unlabored, Respiratory pattern is regular, Ventilator assessment: ET Tube: 7.5 23 cm at lip. Ventilator Mode: Assist Control (AC) Tidal Volume: 500 Respiratory Rate: 18 FiO2: 100%. PEEP: 7.5 HOB > 30 degrees. Breath sounds with crackles bilaterally. GI: Abdomen is round non-distended, Abd is soft and non tender X 4 quads. Derm: Skin is intact. 19:55 Reassessment: Patient's sister, Amanda Cisneros (phone: [phone]) updated on lp1 patient status and pending transfer; Reports to give information to sisterCecy at [phone] for further information. 20:03 Reassessment: given report to Daphne Tao. rv 21:36 Reassessment: Spoke with Amanda, updated on patient transfer truck arrival by 2230 for lp1 transport to [facility] ER. 22:44 Reassessment: REPORT GIVEN TO [facility]. DISCHARGED. rv Vital Signs: 14:10 BP 223 / 123; Pulse 110; Resp 40 S; Pulse Ox 97% on Non-rebreather mask; jd3 14:17 BP 182 / 145; Pulse 108; Resp 25 S; Pulse Ox 90% on Nebulizer Mask; jd3 14:27 BP 196 / 110; Pulse 117; Resp 24 A; Pulse Ox 98% on ETT ambu; jd3 14:33 BP 222 / 136; Pulse 102; Resp 16 A; Pulse Ox 93% on ETT vent; jd3 14:47 BP 181 / 112; Pulse 114; Resp 22 A; Pulse Ox 94% on ETT vent; jd3 14:53 BP 183 / 100; Pulse 110; Resp 23 A; Pulse Ox 95% on ETT vent; jd3 15:15 BP 175 / 94; Pulse 94; Resp 16 S; Pulse Ox 93% on ETT vent; jd3 15:25 BP 178 / 98; Pulse 93; Resp 16 A; Pulse Ox 94% on ETT vent; jd3 15:35 BP 177 / 94; Pulse 92; Resp 16 A; Pulse Ox 96% on ETT vent; jd3 15:57 BP 155 / 88; Pulse 91; Resp 16 A; Pulse Ox 97% on ETT vent; jd3 16:12 BP 174 / 92; Pulse 87; Resp 16 A; Pulse Ox 96% on ETT vent; Weight 70.31 kg (R); jd3 16:36 BP 180 / 94; Pulse 86; Resp 17 A; Pulse Ox 96% on ETT vent; jd3 16:45 BP 180 / 94; Pulse 84; Resp 19 A; Pulse Ox 96% on ETT vent; jd3 17:13 BP 176 / 93; Pulse 81; Resp 16 S; Pulse Ox 97% on R/A; jd3 17:48 BP 124 / 77; Pulse 75; Resp 18 A; Pulse Ox 100% on ETT vent; jd3 18:32 BP 116 / 77; Pulse 66; Resp 16 A; Pulse Ox 100% on ETT vent; jd3 19:00 BP 112 / 70; Pulse 67; Resp 11; Pulse Ox 100% on 100% FiO2 ETT vent; rr5 19:30 BP 151 / 82; Pulse 77; Resp 17; Pulse Ox 100% on 100% FiO2 ETT vent; rr5 20:00 BP 98 / 70; Pulse 65; Resp 16; Pulse Ox 100% on 95% FiO2 ETT vent; rr5 21:00 BP 128 / 75; Pulse 61; Resp 16; Pulse Ox 100% on 85% FiO2 ETT vent; rr5 22:44 BP 107 / 70; Pulse 61; Resp 16; Temp 97.5; Pulse Ox 100% on 85% FiO2 ETT vent; rv ED Course: 14:10 Patient arrived in ED. jl7 14:10 Arm band placed on. jd3 14:10 EKG completed in triage. Results shown to MD. jd3 14:13 Inserted saline lock: 20 gauge in left antecubital area, using aseptic technique. Blood jd3 collected. placed by Wilber LEE. Inserted saline lock: 20 gauge in right antecubital area, using aseptic technique. placed by Marko LEE. 14:14 EKG done, by ED staff, reviewed by Joaquim Zuluaga MD. em 14:25 Assisted provider with intubation using 7.5 mm ETT via oral route. ET tube secured at jd3 23cm at the teeth. Set up intubation tray. Intubated by Brian HAIR Placement verified by CO2 detector w/ + color change, auscultating bilateral breath sounds, CXR, Patient tolerated well. 14:27 Joaquim Zuluaga MD is Attending Physician. rn 14:30 CXR XRAY In Process Unspecified. EDMS 14:34 Patient has correct armband on for positive identification. Placed in gown. Bed in low mh5 position. Call light in reach. Side rails up X 1. banking paralegal on. Pulse ox on. NIBP on. 14:35 [facility] jr[facility] 14:47 Chest Single View In Process Unspecified. EDMS 14:52 Vidal cath inserted, using sterile technique, 16 Fr., by me, balloon inflated. mh5 14:56 Triage completed. iw 15:00 NGT: inserted 16 Fr. other via OG verified placement of air over stomach, verified jd3 return of gastric contents, to intermittent suction. Patient tolerated well. 15:51 CT Chest For PE Angio In Process Unspecified. EDMS 16:02 Davy Freedman, JESUS is Primary Nurse. jd3 20:03 Inserted midline g18 x 8cm, BILLIE. rv 20:08 IV is patent, with fluids infusing freely, Patient admitted, IV remains in place. rv Administered Medications: 14:10 Drug: EPINEPHrine 1mg/mL 1:1,000 0.5 mg Route: IM; Site: left vastus lateralis; jd3 15:00 Follow up: Response: No adverse reaction jd3 14:13 Drug: Xopenex (3) 1.25 mg Route: Inhalation; jd3 15:00 Follow up: Response: No adverse reaction jd3 14:15 Drug: Nitro Drip - (Nitroglycerin 50 mg, D5W 250 ml) Route: IV; Rate: 5 mcg/min; Site: jd3 left antecubital; 17:47 Follow up: Response: No adverse reaction; IV Status: Order to discontinue infusion jd3 14:15 Drug: Lasix 80 mg Route: IVP; Site: right antecubital; jd3 15:00 Follow up: Response: No adverse reaction jd3 14:19 Drug: Nitro-Bid Ointment 2 % 1 inches Route: Transdermal; Site: anterior chest wall; jd3 18:26 Follow up: Response: No adverse reaction; No adverse reaction, order to take off at j this time 14:24 Drug: Etomidate 20 mg Route: IVP; Site: right antecubital; jd3 15:20 Follow up: Response: No adverse reaction jd3 14:24 Drug: Succinylcholine 100 mg Route: IVP; Site: right antecubital; jd3 15:20 Follow up: Response: No adverse reaction jd3 14:42 Drug: Propofol 5 mcg/kg/min Route: IV; Rate: calculated rate; Site: right antecubital; jd3 18:25 Follow up: Response: No adverse reaction; IV Status: Infusion continued upon admission jd3 20:10 Follow up: IV Status: Infusion continued upon transfer rv 14:53 Drug: VecuroNIUM 10 mg Route: IVP; Site: right antecubital; jd3 15:50 Follow up: Response: No adverse reaction jd3 15:15 Drug: Dilaudid 1 mg Route: IVP; Site: left antecubital; jd3 19:06 Follow up: Response: No adverse reaction; RASS: Alert and Calm (0) jd3 18:23 Drug: Zosyn 4.5 grams Route: IVPB; Infused Over: 60 mins; Site: left antecubital; jd3 20:10 Follow up: IV Status: Completed infusion rv 18:45 Drug: fentaNYL (PF) 75 mcg Route: IVP; Site: left antecubital; jd3 19:07 Follow up: Response: No adverse reaction; RASS: Alert and Calm (0) jd3 Output: 16:45 Urine: 2000ml (Vidal); Total: 2000ml. jd3 Outcome: 19:25 ER care complete, transfer ordered by . jr8 20:08 [facility]red by ground EMS [facility] rv 20:08 Condition: stable 20:08 Instructed on the need for admit. 22:50 Patient left the ED. rv Signatures: Dispatcher [employer] EDDeven Goss RN RN em Williams, Irene, RN RN iw Nieto, Roman, MD MD rn Pena, Laura, RN RN lp1 Brian Soliman PA PA jr8 Catrina Lopez Jahala, RN RN jl7 Davy Freedman RN RN jd3 Johnson Jones RN RN Darron Stewart, RN RN rr5 Corrections: (The following items were deleted from the chart) 16:10 14:24 Etomidate 20 mg IVP in left antecubital jd3 jd3 16:42 14:20 BP 223 / 123; Pulse 110bpm; Resp 40bpm; Spontaneous; Pulse Ox 97% Non-rebreather jd3 mask; iw 18:37 18:32 Reassessment: No changes from previously documented assessment. Patient and/or jd3 family updated on plan of care and expected duration. Pain level reassessed. jd3 19:06 16:15 Response: No adverse reaction jd3 jd3 19:07 19:06 Response: No adverse reaction jd3 jd3
[2020-05-02] MEDS ORDERED: propofoL 1,000 MG/100 ML VIAL IV ONE (19:59)
[2020-05-02 23:34] VITALS: O2SAT 100
[2020-05-02 23:42] VITALS: BP 107/70; TEMP 97.5
== END 2020-05-02 22:50 ==
LOC: ER 14:07
PROC: 0BH17EZ Insertion of Endotracheal Airway into Trachea, Via Natural or Artificial Opening (ICD-10-PCS; principal; 2020-05-02)
PROC: 5A1935Z Respiratory Ventilation, Less than 24 Consecutive Hours (ICD-10-PCS; 2020-05-02)
DX: J15.8 Pneumonia due to other specified bacteria (principal); J80 Acute respiratory distress syndrome; I10 Essential (primary) hypertension; Z21 Asymptomatic human immunodeficiency virus [HIV] infection status; Z98.890 Other specified postprocedural states; Z20.822 Contact with and (suspected) exposure to COVID-19; Z72.0 Tobacco use; Z88.1 Allergy status to other antibiotic agents
CPT/HCPCS: 93005 ×2; 87040 ×2; 85025; 80048; 36415; 83735; 85610; 80076; 84484; 84145; 83880; 71275; 71045 ×2; 94002; 82805; 31500; 51702; 96372; 99291; 99292; U0003; Q9967; J0330; J2704; J2250; J3010; J7040; J7030; J2930